=== PATIENT | male | born 1995 | race Caucasian/White ===

== ENCOUNTER 2018-06-10 10:37 | Emergency (ER) | payer OTHER ==
--- NOTE | 2018-06-10 11:41 | EDPHY ---
H & P Time Seen by Provider: 06/10/18 10:51 HPI/ROS: CHIEF COMPLAINT: Dizziness HISTORY OF PRESENT ILLNESS: 23-year-old male arrives via private vehicle. Patient states that today he woke at 5:00 a.m. he was unable to ambulate secondary to dizziness and diplopia. Eventually was able to make his way to the bathroom by holding onto furniture. He went back to bed. He has had multiple episodes of intractable nausea and vomiting ever since as well as continued dizziness sensation. He notes intermittent horizontal diplopia when he looks at me. Denies: Major minor head trauma or manipulation, no chiropractic manipulation, no neck pain, no headache, no hearing loss, no tinnitus, no barotrauma, no recent illness. PRIMARY CARE PROVIDER: REVIEW OF SYSTEMS: 10 systems reviewed and negative with the exception of the elements mentioned in the history of present illness PAST MEDICAL & SURGICAL HISTORY: No pertinent medical or surgical history SOCIAL HISTORY: Nonsmoker. Student. FAMILY HISTORY: no fever no family history of neurologic disease PHYSICAL EXAM (Prior to examination, patient consented to physical exam, hands were washed and my usual and customary physical exam procedures followed) 1) GENERAL: Well-developed, well-nourished, alert and oriented. Appears to be in no acute distress. 2) HEAD: Normocephalic, atraumatic 3) HEENT: Pupils equal, round, reactive to light bilaterally. Sclera anicteric. Positive left-sided nystagmus. Nasopharynx, oropharynx, clear, no lesions. MoistDry mucous membranes. Ears bilaterally with normal tympanic membranes. 4) NECK: Full range of motion, no meningeal signs. 5) LUNGS: Clear auscultation bilaterally, no wheezes, no rhonchi, no retractions. 6) HEART: Regular rate and rhythm, no murmur, no heave, no gallop. 7) ABDOMEN: No guarding, no rebound, no focal tenderness, negative McBurney's, negative Little's, negative Rovsing's, negative peritoneal sign, 8) MUSCULOSKELETAL: Moving all extremities, no focal areas of tenderness, no obvious trauma. No peripheral edema or discoloration. 9) BACK: No CVA tenderness, no midline vertebral tenderness, no fluctuance, no step-off, no obvious trauma, no visual or palpable abnormality. 10) SKIN: No rash, no petechiae. 11) Psychiatric: Patient is oriented X 3, there is no agitation. 12) NEURO: Awake, alert, and oriented to person, place and time. Answers questions appropriately. There were no obvious focal neurologic abnormalities. No cerebellar dysfunction. Cranial nerves 2 through to 12 intact. Unable to ambulate without 1 person on each upper extremity to assess the patient. Upper and lower extremities bilaterally with strength 5 / 5, reflexes 2+. DIFFERENTIAL DIAGNOSIS: in no particular order including but not limited to benign positional vertigo, Meniere's disease, acoustic neuroma, malignancy, neurologic disease - Personal History Current Tetanus/Diphtheria Vaccine: Yes Current Tetanus Diphtheria and Acellular Pertussis (TDAP): Yes - Medical/Surgical History Hx Asthma: No Hx Chronic Respiratory Disease: No Hx Diabetes: No Hx Cardiac Disease: No Hx Renal Disease: No Hx Cirrhosis: No Hx Alcoholism: No Hx HIV/AIDS: No Hx Splenectomy or Spleen Trauma: No Other PMH: denials - Social History Smoking Status: Former smoker Constitutional: Initial Vital Signs Temperature (C) 36.5 C 06/10/18 10:43 Heart Rate 66 06/10/18 10:43 Respiratory Rate 16 06/10/18 10:43 Blood Pressure 125/72 H 06/10/18 10:43 O2 Sat (%) 96 06/10/18 10:43 O2 Delivery Mode Room Air Allergies/Adverse Reactions: No Known Allergies Allergy (Unverified 06/10/18 10:42) Home Medications: Medication Instructions Recorded Meclizine HCl [Meclizine HCl 25 mg 25 mg PO BID PRN #10 tab 06/10/18 (RX,OTC)] Medical Decision Making - Diagnostics Imaging Results: Imaging Impressions Brain MRI 06/10/18 11:04 Impression: Low-lying cerebellar tonsils; otherwise negative MRI of the brain without contrast. Results called to Nolan Packer PA-C, at 12:30 PM. Images myself ED Course/Re-evaluation: 11:06 a.m.: I have evaluated this patient. He is unable to ambulate without assistance. On exam however on the bed he has a nonfocal exam with no gross cerebellar dysfunction. I had a lengthy discussion with the patient and his mother, discussed possible etiologies which include but are not limited to, benign positional vertigo, acoustic neuroma, acute neurologic disease such as multiple sclerosis. He does describe intermittent diplopia. Recommended imaging studies to include MRI. Care of patient under supervision of secondary supervising physician Dr Perez with whom I discussed case. 1:10 p.m.: Re-evaluation. Discussed with patient's imaging studies. He has received IV hydration and oral meclizine. He is feeling "100% better". States that he is hungry and would like to be discharged. 1:30 p.m.: The patient has been ambulated without assistance with stable steady gait. He would like to be discharged. Plan will be discharged with Antivert, follow up with neurology. - Data Points Laboratory Results: Laboratory Results 06/10/18 10:50 06/10/18 10:50 06/10/18 06/10/18 10:50 10:50 WBC 6.07 10^3/uL 10^3/uL (3.80-9.50) RBC 5.81 10^6/uL 10^6/uL (4.40-6.38) Hgb 18.3 g/dL H g/dL (13.7-17.5) Hct 48.7 % % (40.0-51.0) MCV TNP MCH TNP MCHC TNP RDW 11.4 % L % (11.5-15.2) Plt Count 233 10^3/uL 10^3/uL (150-400) MPV 9.3 fL fL (8.7-11.7) Neut % (Auto) 67.6 % % (39.3-74.2) Lymph % (Auto) 23.2 % % (15.0-45.0) Carlton % (Auto) 7.9 % % (4.5-13.0) Eos % (Auto) 0.5 % L % (0.6-7.6) Baso % (Auto) 0.5 % % (0.3-1.7) Nucleat RBC Rel Count 0.0 % % (0.0-0.2) Absolute Neuts (auto) 4.10 10^3/uL 10^3/uL (1.70-6.50) Absolute Lymphs (auto) 1.41 10^3/uL 10^3/uL (1.00-3.00) Absolute Monos (auto) 0.48 10^3/uL 10^3/uL (0.30-0.80) Absolute Eos (auto) 0.03 10^3/uL 10^3/uL (0.03-0.40) Absolute Basos (auto) 0.03 10^3/uL 10^3/uL (0.02-0.10) Absolute Nucleated RBC 0.00 10^3/uL 10^3/uL (0-0.01) Immature Gran % 0.3 % % (0.0-1.1) Immature Gran # 0.02 10^3/uL 10^3/uL (0.00-0.10) RBC/WBC/PLT Morphology NORMAL (NORMAL) Platelet Estimate ADEQUATE (ADEQ) Sodium 139 mEq/L mEq/L (135-145) Potassium 3.8 mEq/L mEq/L (3.5-5.2) Chloride 99 mEq/L mEq/L (97-110) Carbon Dioxide 23 mEq/l mEq/l (22-31) Anion Gap 17 mEq/L H mEq/L (6-14) BUN 12 mg/dL mg/dL (7-23) Creatinine 0.9 mg/dL mg/dL (0.7-1.3) Estimated GFR > 60 Glucose 110 mg/dL H mg/dL (70-100) Calcium 10.4 mg/dL mg/dL (8.5-10.4) Medications Given: Discontinued Medications Lorazepam (Ativan Injection) 1 mg IVP EDNOW ONE Stop: 06/10/18 12:24 Last Admin: 06/10/18 12:35 Dose: Not Given Meclizine HCl (Meclizine Hcl) 25 mg PO EDNOW ONE Stop: 06/10/18 12:24 Last Admin: 06/10/18 12:38 Dose: 25 mg Departure - Departure Disposition: Home, Routine, Self-Care Clinical Impression: Dizziness Condition: Good Instructions: Vertigo (ED), Dizziness (ED) Additional Instructions: Return to the emergency department if you are unable to walk, if you develop inability to tolerate oral intake, intractable nausea or vomiting, if you develop headache, hearing loss, or any other symptoms that concern you. Referrals: Jose Bolden MD [Medical Doctor] - 1-2 days without fail Stand Alone Forms: School Excuse Prescriptions: Meclizine HCl [Meclizine HCl 25 mg (RX,OTC)] 25 mg PO BID PRN #10 tab PRN Reason: Dizziness
[2018-06-10] MEDS ORDERED: LORazepam 2 MG/ML INJ IVP ONE (12:23)
[2018-06-10] MEDS ORDERED: MECLIZINE HCL 25 MG TAB PO ONE (12:23)
[2018-06-10 12:39] LABS: PLATELET COUNT 233 10^3/uL (150-400)
[2018-06-10 13:44] VITALS: BP 140/74
--- NOTE | 2018-06-14 15:19 | CPEKG ---
Test Reason : OPEN Blood Pressure : / mmHG Vent. Rate : 058 BPM Atrial Rate : 058 BPM P-R Int : 130 ms QRS Dur : 084 ms QT Int : 412 ms P-R-T Axes : -03 058 -02 degrees QTc Int : 405 ms Sinus rhythm Borderline T abnormalities, inferior leads ST elev, probable normal early repol pattern Confirmed by Issac Perez ([id number] on 06/14/2018 3:19:08 PM Referred By: Issac Perez Confirmed By:Issac Perez
== END 2018-06-10 13:44 | disposition home or self-care (01) ==
DX: R42 Dizziness and giddiness (principal)
CPT/HCPCS: 70551-PN; 96374